=== PATIENT | female | born 1940 | race Hispanic/Latino ===

== ENCOUNTER 2019-08-03 08:52 | Emergency (ER) | payer OTHER ==
[2019-08-03 09:53] LABS: BASOPHILS % (AUTO) 0.5 % (0.0-5.0); EOSINOPHILS % (AUTO) 0.6 % (0.0-8.0); HEMATOCRIT 34.1 % (36-48); LYMPHOCYTES % (AUTO) 13.6 % (21.0-51.0); MEAN CORPUSCULAR HEMOGLOBIN 29.5 pg (27.0-33.0); MEAN CORPUSCULAR HGB CONC 33.6 g/dL (32.0-36.0); MONOCYTES % (AUTO) 7.3 % (3.0-13.0); NUCLEATED RED BLOOD CELLS 0.2 % (0.0-0.19); PLATELET COUNT (AUTO) 276 K/uL (130-400); RED BLOOD CELL COUNT(AUTO) 3.88 MIL/uL (4.00-5.50); RED CELL DISTRIBUTION WIDTH 13.7 % (11.0-15.5); WHITE BLOOD COUNT (AUTO) 12.4 K/uL (4.8-10.8)
[2019-08-03 09:55] LABS: APPEARANCE,URINE Clear (CLEAR); BILIRUBIN,URINE Negative (NEGATIVE); COLOR,URINE Yellow (YELLOW); GLUCOSE, URINE (UA) Negative (NEGATIVE); KETONES,URINE Negative (NEGATIVE); LEUKOCYTE ESTERASE ,URINE Small (NEGATIVE); NITRATE,URINE Negative (NEGATIVE); OCCULT BLOOD,URINE Small (NEGATIVE); PROTEIN,URINE Negative (NEGATIVE)
[2019-08-03 10:03] LABS: POTASSIUM 3.6 mmol/L (3.5-5.1)
[2019-08-03 10:04] LABS: INR 0.99 (0.85-1.15); PARTIAL THROMBOPLASTIN TIME 29.5 SEC (26.3-35.5); PROTHROMBIN TIME 10.4 SEC (9.6-11.6)
[2019-08-03 10:07] LABS: ALBUMIN 3.7 g/dL (3.5-5.0); BILIRUBIN,DIRECT 0.2 mg/dL (0.0-0.3); BILIRUBIN,TOTAL 0.9 mg/dL (0.2-1.0); TOTAL PROTEIN, SERUM 7.6 g/dL (6.0-8.3)
[2019-08-03] MEDS ORDERED: ONDANSETRON HCL 4 MG/2 ML VIAL ONE (10:28)
[2019-08-03] MEDS ORDERED: KETOROLAC TROMETHAMINE 30MG/ML ONE (10:29)
[2019-08-03 10:30] LABS: BACTERIA,URINE None Seen /HPF (None Seen); RBC,URINE 0-1 /HPF (0-1)
[2019-08-03] MEDS ORDERED: CEFTRIAXONE SODIUM 1 GM ONE (11:55)
[2019-08-03] MEDS ORDERED: SODIUM CHLORIDE 0.9% 100 ML IV ONE (11:56)
== END 2019-08-03 12:54 | disposition home or self-care (01) ==
LOC: EDH 08:52
DX: K57.32 Diverticulitis of large intestine without perforation or abscess without bleeding (principal); I10 Essential (primary) hypertension; M19.90 Unspecified osteoarthritis, unspecified site; Z88.1 Allergy status to other antibiotic agents
CPT/HCPCS: 36415; 74176; 80048; 80076; 81001; 82550; 83690; 84484; 85025; 85610; 85730; 93005; 96374; 96375; 99285; J0696; J1885; J2405

== ENCOUNTER 2020-12-24 17:08 | Inpatient (IN) | payer OTHER ==
[~2020-12-24] VITALS: Ht 165.1 cm; Wt 71.7 kg
[2020-12-24 17:29] LABS: BASOPHILS % (AUTO) 0.7 % (0.0-5.0); HEMATOCRIT 30.8 % (36-48); LYMPHOCYTES % (AUTO) 39.1 % (21.0-51.0); MEAN CORPUSCULAR HEMOGLOBIN 26.8 pg (27.0-33.0); MEAN CORPUSCULAR HGB CONC 32.1 g/dL (32.0-36.0); MEAN CORPUSCULAR VOLUME 83.5 fL (79-99); MONOCYTES % (AUTO) 6.4 % (3.0-13.0); NEUTROPHILS % (AUTO) 50.2 % (40.0-77.0); PLATELET COUNT (AUTO) 538 K/uL (130-400); RED BLOOD CELL COUNT(AUTO) 3.69 MIL/uL (4.00-5.50); RED CELL DISTRIBUTION WIDTH 13.9 % (11.0-15.5); WHITE BLOOD COUNT (AUTO) 10.1 K/uL (4.8-10.8)
[2020-12-24 17:40] LABS: CREATININE 1.1 mg/dL (0.5-1.5); POTASSIUM 3.6 mmol/L (3.5-5.1)
[2020-12-24 17:41] LABS: INR 1.1 (0.85-1.15); PROTHROMBIN TIME 11.9 SEC (9.6-11.6)
[2020-12-24 17:43] LABS: PARTIAL THROMBOPLASTIN TIME 30.7 SEC (26.3-35.5)
[2020-12-24 17:49] LABS: ALBUMIN 3.2 g/dL (3.5-5.0); BILIRUBIN,TOTAL 0.4 mg/dL (0.2-1.0); TOTAL PROTEIN, SERUM 8.8 g/dL (6.0-8.3)
[2020-12-24] MEDS ORDERED: ASPIRIN 325 MG TABLET ONE (19:29)
[2020-12-24] MEDS ORDERED: NITROGLYCERIN 1GM OINT 1 INCH/1GM TD ONE (19:29)
[2020-12-24] MEDS ORDERED: NITROGLYCERIN 0.4 MG SL TAB SL PRN (19:45)
[2020-12-24] MEDS ORDERED: ACETAMINOPHEN 325 MG TAB PO PRN ×2 (19:45)
[2020-12-24] MEDS: NITROGLYCERIN 1GM OINT 1 INCH/1GM TD SCH (19:45)
[2020-12-24] MEDS ORDERED: GUAIFENESIN-DM 200/20 MG 10 ML PO PRN (19:45)
[2020-12-24] MEDS ORDERED: LACTULOSE 20 GM/30 ML UDCUP PO PRN (19:45)
[2020-12-24] MEDS ORDERED: MORPHINE 2 MG SYG IV PRN (19:45)
[2020-12-24] MEDS ORDERED: ONDANSETRON 4MG INJ IV PRN (19:45)
[2020-12-24] MEDS ORDERED: POTASSIUM CHLORIDE 10% ELIXIR 20 MEQ/15 ML UDCUP PO PRN (20:00)
[2020-12-24] MEDS ORDERED: KCL 20 MEQ ERTAB PO PRN (20:00)
[2020-12-24] MEDS ORDERED: MAGNESIUM 2GM PREMIX 50ML 50 ML IV PRN (20:00)
[2020-12-24] MEDS ORDERED: POTASSIUM CHLORIDE 10MEQ/100ML 100 ML IV PRN (20:00)
[2020-12-24] MEDS: METOPROLOL TARTRATE 25 MG TAB PO SCH (21:00)
[2020-12-24] MEDS: BENZONATATE 100 MG CAPSULE PO SCH (23:40)
[2020-12-24] MEDS: FAMOTIDINE 20MG VIAL IV SCH (23:40)
[2020-12-24] MEDS: HEPARIN 5,000 UNIT VIAL SQ SCH (23:43)
[2020-12-25 00:29] VITALS: BP 143/67
[2020-12-25] MEDS: NITROGLYCERIN 1GM OINT 1 INCH/1GM TD SCH ×3 (03:45→20:04)
[2020-12-25 04:30] VITALS: BP 156/78
[2020-12-25 05:03] LABS: BASOPHILS % (AUTO) 0.9 % (0.0-5.0); EOSINOPHILS % (AUTO) 2.5 % (0.0-8.0); HEMATOCRIT 24.8 % (36-48); LYMPHOCYTES % (AUTO) 34.5 % (21.0-51.0); MEAN CORPUSCULAR HEMOGLOBIN 26.5 pg (27.0-33.0); MEAN CORPUSCULAR HGB CONC 31.5 g/dL (32.0-36.0); MEAN CORPUSCULAR VOLUME 84.4 fL (79-99); MONOCYTES % (AUTO) 8.6 % (3.0-13.0); PLATELET COUNT (AUTO) 477 K/uL (130-400); RED BLOOD CELL COUNT(AUTO) 2.94 MIL/uL (4.00-5.50); RED CELL DISTRIBUTION WIDTH 13.8 % (11.0-15.5); WHITE BLOOD COUNT (AUTO) 8.7 K/uL (4.8-10.8)
[2020-12-25 05:31] LABS: ALBUMIN 2.3 g/dL (3.5-5.0); BILIRUBIN,TOTAL 0.3 mg/dL (0.2-1.0); CREATININE 0.9 mg/dL (0.5-1.5); TOTAL PROTEIN, SERUM 6.7 g/dL (6.0-8.3)
[2020-12-25 08:00] VITALS: BP 150/74
[2020-12-25] MEDS ORDERED: ASPIRIN 325 MG TABLET PO SCH (09:00)
[2020-12-25] MEDS: METOPROLOL TARTRATE 25 MG TAB PO SCH ×2 (09:55→20:05)
[2020-12-25] MEDS: BENZONATATE 100 MG CAPSULE PO SCH ×3 (09:55→20:04)
[2020-12-25] MEDS: HEPARIN 5,000 UNIT VIAL SQ SCH ×2 (09:58→13:35)
[2020-12-25] MEDS ORDERED: HEPARIN 25,000 UNITS/250ML D5W 250 ML IV SCH (10:45)
[2020-12-25] MEDS ORDERED: HEPARIN 5,000 UNIT VIAL SQ PRN (10:45)
[2020-12-25] MEDS ORDERED: LOSARTAN 50 MG TABLET PO SCH (10:46)
[2020-12-25] MEDS ORDERED: CLOPIDOGREL 300MG TAB PO SCH (11:15)
[2020-12-25 11:57] LABS: APPEARANCE,URINE Clear (CLEAR); BILIRUBIN,URINE Negative (NEGATIVE); COLOR,URINE Yellow (YELLOW); GLUCOSE, URINE (UA) Negative (NEGATIVE); KETONES,URINE Negative (NEGATIVE); LEUKOCYTE ESTERASE ,URINE Small (NEGATIVE); NITRATE,URINE Negative (NEGATIVE); OCCULT BLOOD,URINE Trace (NEGATIVE); PROTEIN,URINE Negative (NEGATIVE)
[2020-12-25 12:00] VITALS: BP 144/68
[2020-12-25 12:48] LABS: BACTERIA,URINE Rare /HPF (None Seen); RBC,URINE 0-1 /HPF (0-1)
[2020-12-25] MEDS ORDERED: PANT40TA54 PO (14:27)
[2020-12-25] MEDS ORDERED: METO50 PO (14:27)
[2020-12-25] MEDS ORDERED: ASPI-1197 PO (14:27)
[2020-12-25] MEDS ORDERED: MONT-39 PO (14:27)
[2020-12-25] MEDS ORDERED: HYDR25TA PO (14:27)
[2020-12-25] MEDS ORDERED: LOSA100T58 PO (14:27)
[2020-12-25 14:47] LABS: BASOPHILS % (AUTO) 0.8 % (0.0-5.0); EOSINOPHILS % (AUTO) 2.3 % (0.0-8.0); HEMATOCRIT 28.5 % (36-48); LYMPHOCYTES % (AUTO) 31.1 % (21.0-51.0); MEAN CORPUSCULAR HEMOGLOBIN 27.2 pg (27.0-33.0); MEAN CORPUSCULAR HGB CONC 31.6 g/dL (32.0-36.0); MEAN CORPUSCULAR VOLUME 86.1 fL (79-99); NEUTROPHILS % (AUTO) 57.5 % (40.0-77.0); PLATELET COUNT (AUTO) 465 K/uL (130-400); RED BLOOD CELL COUNT(AUTO) 3.31 MIL/uL (4.00-5.50); RED CELL DISTRIBUTION WIDTH 13.8 % (11.0-15.5); WHITE BLOOD COUNT (AUTO) 8.7 K/uL (4.8-10.8)
[2020-12-25 16:00] VITALS: BP 144/67
[2020-12-25] MEDS: 0.9%NACL 1000ML 1,000 ML IV SCH (18:06)
[2020-12-25 20:00] VITALS: BP 128/57
[2020-12-25] MEDS: FAMOTIDINE 20MG VIAL IV SCH (20:06)
[2020-12-26] VITALS: BP 138/63
[2020-12-26 04:00] VITALS: BP 141/59
[2020-12-26] MEDS: NITROGLYCERIN 1GM OINT 1 INCH/1GM TD SCH ×3 (04:03→19:45)
[2020-12-26 05:40] LABS: HEMATOCRIT 26.7 % (36-48); MEAN CORPUSCULAR HEMOGLOBIN 26.9 pg (27.0-33.0); MEAN CORPUSCULAR HGB CONC 31.8 g/dL (32.0-36.0); MEAN CORPUSCULAR VOLUME 84.5 fL (79-99); RED BLOOD CELL COUNT(AUTO) 3.16 MIL/uL (4.00-5.50); RED CELL DISTRIBUTION WIDTH 13.7 % (11.0-15.5); WHITE BLOOD COUNT (AUTO) 8.4 K/uL (4.8-10.8)
[2020-12-26] MEDS: 0.9%NACL 1000ML 1,000 ML IV SCH (05:57)
[2020-12-26 06:21] LABS: CREATININE 0.9 mg/dL (0.5-1.5); POTASSIUM 4.2 mmol/L (3.5-5.1)
[2020-12-26 07:47] LABS: RETICULOCYTE % (AUTO) 2.05 % (0.42-2.23)
[2020-12-26 07:58] VITALS: BP 162/76
[2020-12-26] MEDS: METOPROLOL TARTRATE 25 MG TAB PO SCH ×2 (08:10→22:26)
[2020-12-26] MEDS: BENZONATATE 100 MG CAPSULE PO SCH ×3 (08:10→22:26)
[2020-12-26] MEDS ORDERED: LOSARTAN 50 MG TABLET PO SCH ×2 (09:00→13:45)
[2020-12-26 11:59] VITALS: BP 156/69
[2020-12-26 12:14] LABS: % IRON SATURATION 10.9 % (22-44)
[2020-12-26] MEDS: ASPIRIN 81MG CHEW TAB PO SCH (15:58)
[2020-12-26] MEDS: FERROUS SULFATE 325 MG TABLET.DR PO SCH ×2 (15:58→22:26)
[2020-12-26] MEDS: CLOPIDOGREL 75MG TAB PO SCH (15:58)
[2020-12-26] MEDS ORDERED: LOSARTAN 100 MG TABLET PO SCH (16:15)
[2020-12-26] MEDS ORDERED: BISACODYL 10 MG SUPP.RECT RC ONE (18:05)
[2020-12-26 18:20] VITALS: BP 173/81
[2020-12-26 19:00] VITALS: BP 163/76
[2020-12-26] MEDS: FAMOTIDINE 20MG VIAL IV SCH (22:26)
[2020-12-26] MEDS ORDERED: HYDRALAZINE 20MG/ML VIAL IV PRN (22:45)
[2020-12-27] VITALS (11 sets, daily range): BP systolic 138–182; BP diastolic 51–76
[2020-12-27] MEDS: 0.9%NACL 1000ML 1,000 ML IV SCH ×2 (03:27→14:50)
[2020-12-27] MEDS: NITROGLYCERIN 1GM OINT 1 INCH/1GM TD SCH (03:27)
[2020-12-27 05:05] LABS: HEMATOCRIT 26.8 % (36-48); MEAN CORPUSCULAR HEMOGLOBIN 26.9 pg (27.0-33.0); MEAN CORPUSCULAR HGB CONC 32.1 g/dL (32.0-36.0); MEAN CORPUSCULAR VOLUME 83.8 fL (79-99); RED BLOOD CELL COUNT(AUTO) 3.2 MIL/uL (4.00-5.50); RED CELL DISTRIBUTION WIDTH 13.7 % (11.0-15.5); WHITE BLOOD COUNT (AUTO) 7.7 K/uL (4.8-10.8)
[2020-12-27 05:16] LABS: INR 1.09 (0.85-1.15); PROTHROMBIN TIME 11.8 SEC (9.6-11.6)
[2020-12-27 05:18] LABS: PARTIAL THROMBOPLASTIN TIME 32.5 SEC (26.3-35.5)
[2020-12-27 05:28] LABS: CREATININE 0.8 mg/dL (0.5-1.5)
[2020-12-27] MEDS: METOPROLOL TARTRATE 25 MG TAB PO SCH ×2 (08:03→21:32)
[2020-12-27] MEDS: BENZONATATE 100 MG CAPSULE PO SCH ×3 (08:03→21:32)
[2020-12-27] MEDS: LOSARTAN 100 MG TABLET PO SCH (08:03)
[2020-12-27] MEDS: FERROUS SULFATE 325 MG TABLET.DR PO SCH ×2 (08:03→21:32)
[2020-12-27] MEDS: ASPIRIN 81MG CHEW TAB PO SCH (10:39)
[2020-12-27] MEDS: CLOPIDOGREL 75MG TAB PO SCH (10:39)
[2020-12-27] MEDS ORDERED: NITROGLYCERIN 2 MG VIAL IV ONE (11:01)
[2020-12-27] MEDS ORDERED: IOHEXOL-350 50ML VIAL IV ONE (11:01)
[2020-12-27] MEDS ORDERED: IOHEXOL 350 MG/ML 100ML INFUS..BTL IV ONE (11:01)
[2020-12-27] MEDS ORDERED: BIVALIRUDIN 250 MG/VIAL IV ONE (11:01)
[2020-12-27] MEDS ORDERED: LIDOCAINE HCL 400MG/20ML VIAL ONE (11:02)
[2020-12-27] MEDS ORDERED: FENTANYL CITRATE PF 50 MCG/1 ML 2ML VIAL ONE (11:02)
[2020-12-27] MEDS ORDERED: MIDAZOLAM HCL 1 MG/ML 2ML VIAL ONE (11:02)
[2020-12-27] MEDS ORDERED: LABETALOL 20MG SYG IV ONE ×2 (12:18→12:21)
[2020-12-27] MEDS ORDERED: IOHEXOL-350 75 ML VIAL IV ONE (12:30)
[2020-12-27] MEDS ORDERED: ADENOSINE 90MG VIAL IV ONE (12:34)
[2020-12-27] MEDS ORDERED: HEPARIN 10,000 UNIT/10ML (1,000 UNIT/ML) VIAL ONE (12:39)
[2020-12-27] MEDS ORDERED: LABETALOL 20MG VIAL IV ONE (12:51)
[2020-12-27] MEDS ORDERED: LABE100T5 PO (13:17)
[2020-12-27] MEDS ORDERED: OLME1TAB48 PO (13:17)
[2020-12-27] MEDS ORDERED: ATOR20TA65 PO (13:48)
[2020-12-28 04:00] VITALS: BP 144/67
[2020-12-28 05:24] LABS: HEMATOCRIT 26.2 % (36-48); MEAN CORPUSCULAR HEMOGLOBIN 27.2 pg (27.0-33.0); MEAN CORPUSCULAR HGB CONC 32.4 g/dL (32.0-36.0); MEAN CORPUSCULAR VOLUME 83.7 fL (79-99); RED BLOOD CELL COUNT(AUTO) 3.13 MIL/uL (4.00-5.50); WHITE BLOOD COUNT (AUTO) 7.2 K/uL (4.8-10.8)
[2020-12-28 06:03] LABS: CREATININE 0.9 mg/dL (0.5-1.5); POTASSIUM 3.7 mmol/L (3.5-5.1)
[2020-12-28 07:00] VITALS: BP 153/64
[2020-12-28] MEDS: METOPROLOL TARTRATE 25 MG TAB PO SCH (09:37)
[2020-12-28] MEDS: BENZONATATE 100 MG CAPSULE PO SCH (09:38)
[2020-12-28] MEDS: FERROUS SULFATE 325 MG TABLET.DR PO SCH (09:38)
[2020-12-28] MEDS: ASPIRIN 81MG CHEW TAB PO SCH (09:38)
[2020-12-28] MEDS: LOSARTAN 100 MG TABLET PO SCH (09:38)
[2020-12-28 11:00] VITALS: BP 127/63
== END 2020-12-28 15:19 | disposition home or self-care (01) | DRG 287 ==
LOC: EDH 17:08 → EDHIP 18:57 → OBSVTOIN 18:57 → 4AH 22:17 → 4CH 12-26 05:41
PROVIDERS: ADMIT Internal Medicine Critical Care Medicine; ATTEND Internal Medicine Critical Care Medicine
PROC: 4A023N7 Measurement of Cardiac Sampling and Pressure, Left Heart, Percutaneous Approach (ICD-10-PCS; principal; 2020-12-28)
PROC: B2111ZZ Fluoroscopy of Multiple Coronary Arteries using Low Osmolar Contrast (ICD-10-PCS; 2020-12-28)
PROC: B2151ZZ Fluoroscopy of Left Heart using Low Osmolar Contrast (ICD-10-PCS; 2020-12-28)
PROC: 4A033BC Measurement of Arterial Pressure, Coronary, Percutaneous Approach (ICD-10-PCS; 2020-12-28)
PROC: B41F1ZZ Fluoroscopy of Right Lower Extremity Arteries using Low Osmolar Contrast (ICD-10-PCS; 2020-12-28)
PROC: B4181ZZ Fluoroscopy of Bilateral Renal Arteries using Low Osmolar Contrast (ICD-10-PCS; 2020-12-28)
DX: I25.110 Atherosclerotic heart disease of native coronary artery with unstable angina pectoris (principal); N39.0 Urinary tract infection, site not specified; I16.1 Hypertensive emergency; I10 Essential (primary) hypertension; M19.90 Unspecified osteoarthritis, unspecified site; H91.90 Unspecified hearing loss, unspecified ear; D50.9 Iron deficiency anemia, unspecified; K59.00 Constipation, unspecified; Z88.2 Allergy status to sulfonamides; Z88.8 Allergy status to other drugs, medicaments and biological substances; Z79.82 Long term (current) use of aspirin; Z87.440 Personal history of urinary (tract) infections
CPT/HCPCS: 36252; 36415; 71045; 80048; 80053; 81001; 82270; 82550; 82607; 82728; 83880; 84484; 85025; 85027; 85610; 85730; 86850; 86900; 86901; 93005; 93306; 93356; 93458; 93571; 99291; C1760; C1887; C1894; G0378; J0153; J0583; J1644; J2250; J2405; J3010; J3490; J7030; Q9967

== ENCOUNTER 2021-08-29 16:30 | Emergency (ER) | payer OTHER ==
[~2021-08-29] VITALS: Ht 152.4 cm; Wt 52.6 kg
[~2021-08-29 16:30] MED LIST: ASPI-1197 PO; ATOR20TA65 PO; LABE100T5 PO; MONT-39 PO; OLME1TAB48 PO; PANT40TA54 PO
[2021-08-29] MEDS ORDERED: ACETAMINOPHEN 500 MG TABLET PO ONE (17:00)
[2021-08-29] MEDS ORDERED: ACET-66 PO (18:06)
[2021-08-29 18:11] VITALS: BP 158/66
== END 2021-08-29 18:24 | disposition home or self-care (01) ==
LOC: EDH 16:30
DX: S80.02XA Contusion of left knee, initial encounter (principal); E78.00 Pure hypercholesterolemia, unspecified; I10 Essential (primary) hypertension; Z88.1 Allergy status to other antibiotic agents; Z88.2 Allergy status to sulfonamides; W01.0XXA Fall on same level from slipping, tripping and stumbling without subsequent striking against object, initial encounter; Y93.89 Activity, other specified; Y92.89 Other specified places as the place of occurrence of the external cause; Y99.8 Other external cause status
CPT/HCPCS: 73562

== ENCOUNTER 2023-09-02 22:25 | Emergency (ER) | payer OTHER ==
[~2023-09-02] VITALS: Ht 165.1 cm; Wt 77.1 kg
[~2023-09-02 22:25] MED LIST changes: +ACET-66 PO; -LABE100T5 PO; +LABE100T7 PO
[2023-09-02] MEDS ORDERED: HYDROCODONE/ACETAMINOPHEN 5/325 MG TAB PO ONE (23:00)
[2023-09-03] MEDS ORDERED: CYCL10TA16 PO (01:59)
[2023-09-03 02:27] VITALS: BP 168/66; PULSE 85; RESP 16; O2SAT 98
== END 2023-09-03 02:29 | disposition home or self-care (01) ==
LOC: EDH 22:25
DX: Z04.3 Encounter for examination and observation following other accident (principal); E78.00 Pure hypercholesterolemia, unspecified; I10 Essential (primary) hypertension; Z79.82 Long term (current) use of aspirin; Z79.899 Other long term (current) drug therapy; Z88.1 Allergy status to other antibiotic agents; Z88.2 Allergy status to sulfonamides
CPT/HCPCS: 70450; 71045; 72125; 72170

== ENCOUNTER 2023-12-16 23:44 | Observation (INO) | payer OTHER ==
[~2023-12-16] VITALS: Ht 165.1 cm; Wt 68.4 kg
[~2023-12-16 23:44] MED LIST changes: +CYCL10TA16 PO
[2023-12-17] VITALS (7 sets, daily range): BP systolic 123–175; BP diastolic 51–74; PULSE 77–91; RESP 16–20; O2SAT 95–99
[2023-12-17 00:16] LABS: CREATININE 0.8 mg/dL (0.5-1.5); POTASSIUM 3.9 mmol/L (3.5-5.1)
[2023-12-17 00:18] LABS: INR <= 0.93 (0.85-1.15); PROTHROMBIN TIME 10.8 SEC (9.6-11.6)
[2023-12-17 00:19] LABS: PARTIAL THROMBOPLASTIN TIME 27.8 SEC (26.3-35.5)
[2023-12-17 00:25] LABS: BASOPHILS # (AUTO) 0.04 K/uL (0.00-0.20); BASOPHILS % (AUTO) 0.8 % (0.0-5.0); EOSINOPHILS # (AUTO) 0.03 K/uL (0.00-0.70); EOSINOPHILS % (AUTO) 0.6 % (0.0-8.0); HEMATOCRIT 38.9 % (36-48); IMMATURE GRANULOCYTE ABSOLUTE 0.02 K/uL (0-1); LYMPHOCYTES # (AUTO) 1.7 K/uL (1.0-4.8); LYMPHOCYTES % (AUTO) 33.3 % (21.0-51.0); MEAN CORPUSCULAR HGB CONC 33.9 g/dL (32.0-36.0); MEAN CORPUSCULAR VOLUME 85.5 fL (79-99); MONOCYTES # (AUTO) 0.4 K/uL (0.1-1.0); MONOCYTES % (AUTO) 8.5 % (3.0-13.0); NEUTROPHILS # (AUTO) 2.9 K/uL (1.8-7.7); NEUTROPHILS % (AUTO) 56.4 % (40.0-77.0); PLATELET COUNT (AUTO) 334 K/uL (130-400); RED BLOOD CELL COUNT(AUTO) 4.55 MIL/uL (4.00-5.50); RED CELL DISTRIBUTION WIDTH 13.7 % (11.0-15.5); WHITE BLOOD COUNT (AUTO) 5.1 K/uL (4.8-10.8)
[2023-12-17 00:32] LABS: BILIRUBIN,TOTAL 1.3 mg/dL (0.2-1.0); TOTAL PROTEIN, SERUM 8.2 g/dL (6.0-8.3)
[2023-12-17 00:46] LABS: B-TYPE NATRIURETIC PEPTIDE 90 pg/mL (0-100)
[2023-12-17] MEDS ORDERED: IOHEXOL 350 MG/ML 100ML INFUS..BTL IV ONE (00:52)
[2023-12-17 01:44] LABS: AMMONIA < 10 umol/L (11-32); CREATINE KINASE, TOTAL 42 U/L (21-232)
[2023-12-17 01:49] LABS: ACETAMINOPHEN < 1 mcg/mL (10-30); ALCOHOL, BLOOD < 3 mg/dL (0-10); SALICYLATE < 2.8 mg/dL (2.8-20.0)
[2023-12-17 01:58] LABS: APPEARANCE,URINE CLEAR (CLEAR); BILIRUBIN,URINE NEGATIVE (NEGATIVE); COLOR,URINE LIGHT-YELLOW (YELLOW); GLUCOSE, URINE (UA) NEGATIVE (NEGATIVE); KETONES,URINE NEGATIVE (NEGATIVE); LEUKOCYTE ESTERASE ,URINE NEGATIVE Leu/uL (NEGATIVE); NITRATE,URINE NEGATIVE (NEGATIVE); PROTEIN,URINE 20 mg/dL (NEGATIVE); UROBILINOGEN,URINE 0.2 mg/dL (0.2-1.0)
[2023-12-17 01:59] LABS: ADD UA MICROSCOPIC YES
[2023-12-17 02:04] LABS: BACTERIA,URINE FEW /HPF (None Seen); SQUAMOUS EPITHELIAL CELL,UR FEW /HPF (0-2)
[2023-12-17] MEDS ORDERED: ALBUTEROL 0.083% 2.5 MG/3 ML INH IH PRN (04:00)
[2023-12-17] MEDS ORDERED: ONDANSETRON 4MG INJ IVP PRN (04:00)
[2023-12-17] MEDS: LACTATED RINGERS 1000ML 1,000 ML IV SCH (04:22)
[2023-12-17 05:18] LABS: AMMONIA 25 umol/L (11-32); CHOLESTEROL 140 mg/dL (<200); HDL CHOLESTEROL 62 mg/dL (35-85); LACTATE DEHYDROGENASE 797 U/L (81-234); LDL DIRECT 82 mg/dL (0-99); TRIGLYCERIDES 63 mg/dL (30-200)
[2023-12-17 06:04] LABS: % IRON SATURATION 23.7 % (22-44)
[2023-12-17] MEDS: LISINOPRIL 10 MG TABLET PO ONE (10:43)
[2023-12-17 16:27] LABS: HEPATITIS B SURFACE ANTIGEN Non-Reactive (Nonreactive)
[2023-12-17 16:28] LABS: HEPATITIS A IGM ANTIBODY Non-Reactive (Nonreactive); HEPATITIS C ANTIBODY Non-Reactive (Nonreactive)
[2023-12-17 16:29] LABS: HEPATITIS B CORE IGM ANTIBODY Non-Reactive (Negative)
[2023-12-17 16:31] LABS: HEPATITIS B CORE AB TOTAL Non-Reactive (Nonreactive); HEPATITIS B SURFACE ANTIBODY Negative (Reactive)
[2023-12-18] VITALS (9 sets, daily range): BP systolic 121–143; BP diastolic 54–86; PULSE 74–90; RESP 17–20; O2SAT 97–98
[2023-12-18 04:30] LABS: BASOPHILS # (AUTO) 0.04 K/uL (0.00-0.20); BASOPHILS % (AUTO) 0.8 % (0.0-5.0); EOSINOPHILS # (AUTO) 0.29 K/uL (0.00-0.70); EOSINOPHILS % (AUTO) 5.5 % (0.0-8.0); HEMATOCRIT 33.7 % (36-48); IMMATURE GRANULOCYTE ABSOLUTE 0.01 K/uL (0-1); LYMPHOCYTES # (AUTO) 1.8 K/uL (1.0-4.8); LYMPHOCYTES % (AUTO) 34.2 % (21.0-51.0); MEAN CORPUSCULAR HEMOGLOBIN 28.4 pg (27.0-33.0); MEAN CORPUSCULAR HGB CONC 32.3 g/dL (32.0-36.0); MEAN CORPUSCULAR VOLUME 87.8 fL (79-99); MONOCYTES # (AUTO) 0.5 K/uL (0.1-1.0); NEUTROPHILS # (AUTO) 2.6 K/uL (1.8-7.7); NEUTROPHILS % (AUTO) 49.3 % (40.0-77.0); PLATELET COUNT (AUTO) 294 K/uL (130-400); RED BLOOD CELL COUNT(AUTO) 3.84 MIL/uL (4.00-5.50); WHITE BLOOD COUNT (AUTO) 5.3 K/uL (4.8-10.8)
[2023-12-18 04:58] LABS: ALBUMIN 3.1 g/dL (3.5-5.0); BILIRUBIN,DIRECT 0.2 mg/dL (0.0-0.3); BILIRUBIN,TOTAL 0.7 mg/dL (0.2-1.0); PHOSPHORUS 3.9 mg/dL (2.5-4.9); POTASSIUM 3.4 mmol/L (3.5-5.1); THYROID STIMULATING HORMONE 2.29 uIU/mL (0.36-3.74); TOTAL PROTEIN, SERUM 6.5 g/dL (6.0-8.3)
[2023-12-18] MEDS ORDERED: AMLO-257 PO (10:03)
[2023-12-18] MEDS ORDERED: POTASSIUM CHLORIDE 20MEQ/100ML 100 ML IV PRN (11:00)
[2023-12-18] MEDS: KCL 20 MEQ ERTAB PO PRN (11:33)
[2023-12-18] MEDS: POTASSIUM CHLORIDE 10% ELIXIR 20 MEQ/15 ML UDCUP PO PRN (14:56)
[2023-12-18] MEDS: PANTOPRAZOLE 40 MG TAB DR PO SCH (19:45)
[2023-12-19 01:02] VITALS: BP 140/81; PULSE 86; RESP 18
[2023-12-19 03:56] LABS: BASOPHILS # (AUTO) 0.07 K/uL (0.00-0.20); BASOPHILS % (AUTO) 1.1 % (0.0-5.0); EOSINOPHILS # (AUTO) 0.29 K/uL (0.00-0.70); EOSINOPHILS % (AUTO) 4.7 % (0.0-8.0); HEMATOCRIT 31.7 % (36-48); IMMATURE GRANULOCYTE ABSOLUTE 0.02 K/uL (0-1); LYMPHOCYTES # (AUTO) 2.2 K/uL (1.0-4.8); LYMPHOCYTES % (AUTO) 35.3 % (21.0-51.0); MEAN CORPUSCULAR HEMOGLOBIN 28.6 pg (27.0-33.0); MEAN CORPUSCULAR HGB CONC 33.4 g/dL (32.0-36.0); MEAN CORPUSCULAR VOLUME 85.7 fL (79-99); MONOCYTES # (AUTO) 0.8 K/uL (0.1-1.0); MONOCYTES % (AUTO) 12.1 % (3.0-13.0); NEUTROPHILS # (AUTO) 2.9 K/uL (1.8-7.7); NEUTROPHILS % (AUTO) 46.5 % (40.0-77.0); PLATELET COUNT (AUTO) 279 K/uL (130-400); RED CELL DISTRIBUTION WIDTH 13.7 % (11.0-15.5); WHITE BLOOD COUNT (AUTO) 6.2 K/uL (4.8-10.8)
[2023-12-19 04:02] LABS: CREATININE 0.8 mg/dL (0.5-1.0); POTASSIUM 3.9 mmol/L (3.5-5.1)
[2023-12-19 04:57] VITALS: BP 142/74; PULSE 91; RESP 18
[2023-12-19 07:30] VITALS: BP 135/70; PULSE 93; RESP 18
[2023-12-19 08:00] VITALS: O2SAT 97
[2023-12-19] MEDS: AMLODIPINE 5 MG TAB PO SCH (08:27)
[2023-12-19 11:28] VITALS: BP 142/57; PULSE 81; RESP 18
[2023-12-19] MEDS ORDERED: ONDANSETRON 4MG TABLET PO PRN (11:30)
[2023-12-19 11:54] LABS: CREATININE 0.7 mg/dL (0.5-1.0); POTASSIUM 3.8 mmol/L (3.5-5.1)
[2023-12-19 11:58] LABS: ALBUMIN 3.3 g/dL (3.5-5.0); BILIRUBIN,DIRECT 0.1 mg/dL (0.0-0.3); BILIRUBIN,TOTAL 0.5 mg/dL (0.2-1.0); TOTAL PROTEIN, SERUM 6.9 g/dL (6.0-8.3)
[2023-12-19 13:18] LABS: HIV 1&2 ANTIBODY Non-Reactive (Negative); HIV-1 p24 Antigen Non-Reactive (Negative)
== END 2023-12-19 15:10 | disposition home or self-care (01) ==
LOC: EDH 23:44 → EDHIP 12-17 03:53 → 4DH 12-17 08:04
PROVIDERS: ADMIT Internal Medicine Critical Care Medicine; ATTEND Internal Medicine Critical Care Medicine
DX: K80.20 Calculus of gallbladder without cholecystitis without obstruction (principal); B17.9 Acute viral hepatitis, unspecified; I10 Essential (primary) hypertension; R74.01 Elevation of levels of liver transaminase levels; F41.9 Anxiety disorder, unspecified; E78.00 Pure hypercholesterolemia, unspecified; Z79.899 Other long term (current) drug therapy
CPT/HCPCS: 71045 ×2; 93005; 96360; 81001; 96361 ×3; 99285; 83540; 83550; 82550 ×2; 83615; 84484 ×3; 82330; 80061; 80053 ×2; 83880; 82140 ×2; 85025 ×3; 85610; 85730; 83605; 80074; 86706; 86704; 87522; 86692; 86708; 87350; 36415 ×4; 74177; 76705; 74183; 84145; 84443; 80076; 83735; 84100; 80048; 82248; 86701; 87390; G0378 ×59; G0481; Q9967

== ENCOUNTER → 2024-07-17 | Outpatient (CLI) | payer OTHER, MEDICARE ==
[~2024-07-17] MED LIST changes: -ACET-66 PO; +AMLO-257 PO; -ASPI-1197 PO; -ATOR20TA65 PO; -CYCL10TA16 PO; -LABE100T7 PO; -MONT-39 PO; -OLME1TAB48 PO
== END | disposition home or self-care (01) ==
LOC: RAH 15:18
PROVIDERS: ATTEND Family Medicine
DX: R29.6 Repeated falls (principal)
CPT/HCPCS: 70160

== ENCOUNTER 2025-07-06 19:07 | Emergency (ER) | payer OTHER ==
[~2025-07-06] VITALS: Ht 165.1 cm; Wt 68.0 kg
[2025-07-06 20:35] LABS: IMMATURE GRANULOCYTE ABSOLUTE 0.02 K/uL (0-1); NUCLEATED RED BLOOD CELLS 0.0 % (0.0-0.19); PLATELET COUNT (AUTO) 259 K/uL (130-400); RED BLOOD CELL COUNT(AUTO) 3.81 MIL/uL (4.00-5.50); RED CELL DISTRIBUTION WIDTH 13.9 % (11.0-15.5); WHITE BLOOD COUNT (AUTO) 6.0 K/uL (4.8-10.8)
[2025-07-06 20:46] LABS: CREATININE 0.8 mg/dL (0.5-1.0); GLOMERULAR FILTR. RATE CALC 73.0 mL/min (>90); GLUCOSE,RANDOM 91.0 mg/dL (70-105); SODIUM SERUM 132.0 mmol/L (136-145); UREA NITROGEN, BLOOD 19.0 mg/dL (7-18)
[2025-07-06] MEDS: LACTATED RINGERS 1000ML IV STA (20:51)
[2025-07-06 21:25] LABS: APPEARANCE,URINE CLEAR (CLEAR); GLUCOSE, URINE (UA) NEGATIVE (NEGATIVE); LEUKOCYTE ESTERASE ,URINE NEGATIVE Leu/uL (NEGATIVE); NITRATE,URINE NEGATIVE (NEGATIVE); OCCULT BLOOD,URINE NEGATIVE (NEGATIVE)
[2025-07-06 21:26] LABS: ADD UA MICROSCOPIC NO
--- NOTE | 2025-07-06 22:34 | ERN ---
General Chief Complaint: Hypertension Stated Complaint: HIGH BLOOD PRESSURE Time Seen by MD: 19:46 Source: patient, family History of Present Illness Initial Comments Patient is an 84-year-old female with a history of hypertension and hypercholesterolemia. Today she was checking her blood pressure as she does every day and she noticed it was over 200 and so she comes to the emergency room. Associated symptoms also include sort of a chest tightness and neck tightness as well. Allergies: Coded Allergies: sulfamethoxazole (Verified Allergy, Unknown, 12/24/20) trimethoprim (Verified Allergy, Unknown, 12/24/20) Home Meds Reported Medications Amlodipine Besylate (Amlodipine Besylate) 5 Mg Tablet, 5 MG PO DAILY, TAB 12/18/23 Pantoprazole Sodium (Pantoprazole Sodium) 40 Mg Tablet.dr, 1 TAB PO BID 12/25/20 Past Medical History Past Medical History: High Cholesterol, Hypertension Past Surgical History: None Family History Family History: HTN Social History Social History: Negative, Lives with family Constitutional: (-) chills, (-) diaphoresis, (-) fever, (-) malaise, (-) weakness, (-) other documentation EENTM: (-) eye pain, (-) blurred vision, (-) tearing, (-) double vision, (-) ear pain, (-) ear discharge, (-) nose pain, (-) nose congestion, (-) throat pain, (-) Throat swelling, (-) mouth pain, (-) tooth pain, (-) mouth swelling, (-) other documentation Respiratory: (-) cough, (-) orthopnea, (-) short of breath, (-) stridor, (-) wheezing, (-) other documentation Cardiovascular: (+) chest pain Gastrointestinal/Abdominal: (-) nausea, (-) vomiting, (-) diarrhea, (-) abdominal pain, (-) abdominal distention, (-) constipation, (-) rectal bleeding, (-) dark stool/melena, (-) other documentation Genitourinary: (-) vaginal discharge, (-) vaginal bleeding, (-) dysuria, (-) frequency, (-) hematuria, (-) pain, (-) other documentation Musculoskeletal: (+) Neck pain Physical Exam General Appearance: (+) mild distress Orientation: (+) alert, (+) oriented x 3 Head/Face Trauma: No Eye: bilateral eye normal inspection, bilateral eye PERRL, bilateral eye EOMI Ear, Nose, Throat: (+) hearing grossly normal, (+) normal ENT inspection, (+) moist mucous membraine Neck: (+) normal inspection, (+) supple, (+) full range of motion, (+) no JVD Respiratory: (+) chest non-tender, (+) lungs clear, (+) well ventilated Heart: (+) regular, (+) no gallop Vascular: (+) no edema, (+) normal peripheral pulse Gastrointestinal: (+) soft, (+) non-tender, (+) bowel sound present Skin Comment Pretty moderate skin tenting. Results Laboratory and Microbiology Lab and Micro Result Laboratory Tests Test 07/06/25 20:15 07/06/25 21:06 White Blood Count 6.0 K/uL (4.8-10.8) Red Blood Count 3.81 MIL/uL (4.00-5.50) L Hemoglobin 11.2 g/dL (12.0-16.0) L Hematocrit 34.2 % (36-48) L Mean Corpuscular Volume 89.8 fL (79-99) Mean Corpuscular Hemoglobin 29.4 pg (27.0-33.0) Mean Corpuscular Hemoglobin Concent 32.7 g/dL (32.0-36.0) Red Cell Distribution Width 13.9 % (11.0-15.5) Platelet Count 259 K/uL (130-400) Mean Platelet Volume 10.4 fL (7.5-10.5) Immature Granulocyte % (Auto) 0.3 % (0-1) Neutrophils (%) (Auto) 57.5 % (40.0-77.0) Lymphocytes (%) (Auto) 30.1 % (21.0-51.0) Monocytes (%) (Auto) 9.1 % (3.0-13.0) Eosinophils (%) (Auto) 2.3 % (0.0-8.0) Basophils (%) (Auto) 0.7 % (0.0-5.0) Neutrophils # (Auto) 3.5 K/uL (1.8-7.7) Lymphocytes # (Auto) 1.8 K/uL (1.0-4.8) Monocytes # (Auto) 0.6 K/uL (0.1-1.0) Eosinophils # (Auto) 0.14 K/uL (0.00-0.70) Basophils # (Auto) 0.04 K/uL (0.00-0.20) Absolute Immature Granulocyte (auto 0.02 K/uL (0-1) Nucleated Red Blood Cells 0.0 % (0.0-0.19) Sodium Level 132 mmol/L (136-145) L Potassium Level 4.3 mmol/L (3.5-5.1) Chloride Level 96 mmol/L (101-111) L Carbon Dioxide Level 28 mmol/L (21-32) Blood Urea Nitrogen 19 mg/dL (7-18) H Creatinine 0.8 mg/dL (0.5-1.0) Glomerular Filtration Rate Calc 73 mL/min (>90) Random Glucose 91 mg/dL (70-105) Total Calcium 8.9 mg/dL (8.5-10.1) Magnesium Level 2.00 mg/dL (1.80-2.40) Troponin I High Sensitivity 10 ng/L (4-50) B-Type Natriuretic Peptide 159 pg/mL (0-100) H Urine Color COLORLESS (YELLOW) Urine Appearance CLEAR (CLEAR) Urine pH 7.0 (5.0-8.0) Urine Specific [place] 1.004 (1.001-1.031) Urine Protein NEGATIVE mg/dL (NEGATIVE) Urine Glucose (UA) NEGATIVE mg/dL (NEGATIVE) Urine Ketones NEGATIVE mg/dL (NEGATIVE) Urine Occult Blood NEGATIVE (NEGATIVE) Urine Nitrate NEGATIVE (NEGATIVE) Urine Bilirubin NEGATIVE mg/dL (NEGATIVE) Urine Urobilinogen 0.2 mg/dL (0.2-1.0) Urine Leukocyte Esterase NEGATIVE Francesca/uL MDM MDM: Differential diagnosis: Breakthrough hypertension, acute AR dehydration, muscle tension pain. Rationale: Tests considered and ordered secondary to shared decision making include: Previous outside records reviewed: Old ER visits. Risk of complication and/or morbidity or mortality of patient management: None Medications-Per medication reconciliation Need for hospitalization: Patient does meet criteria for hospitalization. Need for emergency major/minor surgery: No There are no social concerns with this patient. Prescription drug management Prescriptions will include symptomatic care Patient's prior external medical records from other ER visits were reviewed by me as indicated. Prior testing and results from previous visits were reviewed. Prior tests were taken into account with medical decision making and resource utilization, independent historian/historians were used to obtain complete medical history. I independently interpreted the test that were performed, results were reviewed by me and considered findings on radiology if ordered. I gave the patient a L of fluid and some nor flex. We gave her hydralazine which did not help of the for a beta russell which did decrease her blood pressure to normal and her heart rate to normal the patient feels much better. EKG was negative for ischemic changes. CBC was normal. Chemistry panel showed mild hyponatremia mild hypochloremia mild elevation of BUN and a beta natriuretic peptide of 159 and a troponin of 10. UA was negative. ED Course Orders Procedure Category Date Status Time Basic Metabolic Panel LAB 07/06/25 Complete 20:02 Urinalysis Profile LAB 07/06/25 Complete 20:02 Hydralazine 20mg Inj PHA 07/06/25 Complete (Apresoline 20mg In 20:30 Lactated Ringers PHA 07/06/25 Complete 1000ml (Lactated 20:02 Cbc With Differential LAB 07/06/25 Complete 20:02 Magnesium LAB 07/06/25 Complete 20:02 Troponin I High LAB 07/06/25 Complete Sensitivity 20:02 B-Type Natriuretic LAB 07/06/25 Complete Peptide 20:02 12 Lead Ekg Tracing- EKG 07/06/25 Logged Technical 20:02 Metoprolol Tartrate PHA 07/06/25 Complete (Lopressor) 22:00 Orphenadrine Citrate PHA 07/06/25 Complete (Norflex) 22:00 Current Medications Medications (Trade) Dose Ordered Sig/Skylar Route PRN Reason Start Time Stop Time Status Last Admin Dose Admin Hydralazine HCl (APRESOLine 20MG INJ) 20 mg ONCE ONCE IV 07/06/25 20:30 07/06/25 20:31 DC 07/06/25 20:29 Lactated Ringer's (Lactated Ringers 1000ml) 1,000 ml BOLUS STAT IV 07/06/25 20:02 07/06/25 20:06 DC 07/06/25 20:51 Metoprolol Tartrate (loprESSOR) 2.5 mg ONCE ONCE IV 07/06/25 22:00 07/06/25 22:01 DC Orphenadrine Citrate (Norflex) 60 mg ONCE ONCE IVP 07/06/25 22:00 07/06/25 22:01 DC Vital Signs Date Time Temp Pulse Resp B/P (MAP) Pulse Ox O2 Delivery O2 Flow Rate FiO2 07/06/25 22:21 86 18 128/47 98 Room Air* 0 21 07/06/25 21:52 94 18 149/60 97 Room Air* 0 21 07/06/25 21:07 98.2 114 20 177/59 97 Room Air* 0 21 07/06/25 20:29 69 194/74 07/06/25 19:32 98.2 69 18 198/75 98 Room Air* 0 21 07/06/25 19:08 97.5 86 18 205/75 100 Room Air DX & DISP Disposition: Discharge Departure Impression: Primary Impression: Hypertension Additional Impression: Dehydration Condition: Stable Additional Instructions: You came into the hospital because of elevated high blood pressure and with fluids medications and nor flex, which is a muscle relaxant, we have been able to relieve your symptoms and bring her blood pressure back down to normal. I am concerned that you maybe a little dehydrated. I recommend you drink plenty of fluids so that your urine is clear at least once a day. Please see your primary care physician about adjusting your blood pressure medications as you mentioned that it seems like her blood pressure has been slowly creeping up a little bit over the last several weeks. Referrals: TOO GONZALEZ MD (PCP) KAYLA SR MD Jul 06, 2025 22:34
[2025-07-06 23:16] VITALS: PULSE 84; RESP 18; TEMP 98.1; O2SAT 100
[2025-07-06 23:17] VITALS: BP 132/54
[2025-07-06] MEDS: ORPHENADRINE 60MG/2ML IVP ONE (23:17)
--- NOTE | 2025-07-07 06:25 | EKG ---
[facility] Test Date: 2025-07-06 Test Time: 20:48:18 Pat Name: MARCUS YOUNG Department: ED Room: Gender: F Paginator: [id number] : 1940 Requested By: KAYLA SR Order Number: [id number] Reading MD: Jayda Chester Measurements Intervals [place] Rate: 103 P: 94 MA: 140 QRS: 49 QRSD: 90 T: 92 QT: 383 QTc: 501 Interpretive Statements Sinus tachycardia Ventricular bigeminy Prolonged QT interval Compared to ECG 12/16/2023 23:50:55 Ventricular premature complex(es) now present Prolonged QT interval now present Sinus rhythm no longer present Electronically Signed On 07-08-2025 16:11:05 CDT by Jayda Chester Please click the below link to view image of tracing.
== END 2025-07-06 23:18 | disposition home or self-care (01) ==
LOC: EDH 19:07
DX: I10 Essential (primary) hypertension (principal); E86.0 Dehydration; E78.00 Pure hypercholesterolemia, unspecified; Z88.2 Allergy status to sulfonamides; Z79.899 Other long term (current) drug therapy
CPT/HCPCS: 99285; 96374; 96361; 83735; 84484; 80048; 83880; 85025; 81003; 36415; 93005; J7120; J0360; J2360

== ENCOUNTER → 2025-07-11 | Outpatient (CLI) | payer OTHER ==
--- NOTE | 2025-07-23 13:46 | HMCIMG ---
EXAM: CT Abdomen and Pelvis without IV contrast and with oral contrast. CLINICAL HISTORY: Pain. TECHNIQUE: Thin collimated axial CT images of the abdomen and pelvis were obtained with sagittal and coronal reformatted images also submitted. CT scan is done according to ALARA (As Low As Reasonably Achievable). CONTRAST: None COMPARISON: Prior CT abdomen and pelvis dated August 03, 2019 FINDINGS: Unremarkable visualized lung parenchyma. Gallbladder demonstrates subtle hyperdensity within probable hyperdense sludge and tiny calculi. No wall thickening or features of cholecystitis. No focal abnormality within the liver, gallbladder, pancreas, spleen or adrenal glands. An exophytic 2.8 cm cortical cyst from the left kidney upper pole. No other obvious focal lesion in the kidney. No renal calculus or hydronephrosis. 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 There is no obvious bowel wall thickening. Bowel loops are normal in caliber without evidence of obstruction or ileus. Scattered diverticula of the descending and sigmoid colon without evidence of diverticulitis. The appendix is normal. There is no abnormality within the urinary bladder. Unremarkable reproductive organs. Omental fat containing bilateral inguinal hernia. Abdominal and pelvic vessels are patent. No lymphadenopathy. No free fluid. Mild levoscoliosis of the lower lumbar spine. Moderate degenerative changes in the sacroiliac, superolateral joint and multilevel degenerative facet arthropathy in the lumbar spine. Degenerative anterior wedge compression fracture of the T12 thoracic vertebra. Minimal anterolisthesis of L5 over S1 and prominent disc osteophyte complex bulges from L3-L4, through L5-S1 level with multilevel severe degenerative facet arthropathy. Moderate to severe narrowing of the neural foramina. IMPRESSION: No acute process in the abdomen or pelvis. Subtle hyperdensity in the gallbladder lumen probable tiny calculi or sludge within. No wall thickening or features of cholecystitis. Exophytic cortical cyst from the left kidney upper pole. No renal calculus or hydronephrosis. 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 Scattered diverticula of the descending and sigmoid colon without evidence of diverticulitis. Omental fat containing bilateral inguinal hernias. Compared to the prior study there is resolution of the acute diverticulitis in the sigmoid colon. Subtle hyperdensity in the gallbladder lumen and the current scan probable hyperdense sludge. Stable cortical cyst from the left kidney upper pole. Stable calcified right renal artery aneurysm. /[place]
== END | disposition home or self-care (01) ==
LOC: RAH 11:02
PROVIDERS: ATTEND Family Medicine
DX: S22.080A Wedge compression fracture of T11-T12 vertebra, initial encounter for closed fracture (principal); N28.1 Cyst of kidney, acquired; I72.2 Aneurysm of renal artery; K57.30 Diverticulosis of large intestine without perforation or abscess without bleeding; K40.20 Bilateral inguinal hernia, without obstruction or gangrene, not specified as recurrent; M41.86 Other forms of scoliosis, lumbar region; M47.817 Spondylosis without myelopathy or radiculopathy, lumbosacral region; M25.78 Osteophyte, vertebrae; M43.17 Spondylolisthesis, lumbosacral region; M51.379 Other intervertebral disc degeneration, lumbosacral region without mention of lumbar back pain or lower extremity pain; R10.31 Right lower quadrant pain; X58.XXXA Exposure to other specified factors, initial encounter; Y93.89 Activity, other specified; Y92.89 Other specified places as the place of occurrence of the external cause; Y99.8 Other external cause status
CPT/HCPCS: 74176